=== PATIENT | male | born 1995 | race Caucasian/White ===

== ENCOUNTER 2018-02-13 15:56 | Emergency (ER) | payer OTHER ==
[~2018-02-13] VITALS: Ht 180.3 cm; Wt 89.0 kg
[~2018-02-13 15:56] MED LIST: NOHOMEMEDICATIONS; PYRIDIUM200 MG PO
[2018-02-13 16:31] LABS: ABSOLUTE BASOPHILS 0.1 thou/uL (0.0-0.2); ABSOLUTE EOSINOPHILS 0.1 thou/uL (0.0-0.7); ABSOLUTE LYMPHOCYTES 2.6 thou/uL (0.8-5.3); ABSOLUTE MONOCYTES 0.5 thou/uL (0.0-1.2); ABSOLUTE NEUTROPHILS 4.8 thou/uL (1.6-8.1); BASOPHILS 0.8 %; EOSINOPHILS 1.5 %; HEMATOCRIT 44.9 % (42.0-52.0); HEMOGLOBIN 15.4 gm/dL (14.0-18.0); LYMPHOCYTES 32.1 %; MCH 30.2 pg (26.0-34.0); MCHC 34.3 g/dL (28.0-37.0); MONOCYTES 6.3 %; MPV 8.5 fl. (7.2-11.1); NUCLEATED RBCS 0 /100WBC; PLATELET COUNT* 230 thou/uL (150-400); POLYS 59.3 %; RBC 5.11 mil/uL (4.50-6.00); RDW-CV 13.4 % (10.5-14.5); WBC 8.1 thou/uL (4.0-11.0)
[2018-02-13 16:40] LABS: ANION GAP 7 mmol/L (7-16); BUN 16 mg/dL (7-18); CALCIUM 9.4 mg/dL (8.5-10.1); CHLORIDE 102 mmol/L (98-107); CO2 31 mmol/L (21-32); CREATININE 1.1 mg/dL (0.6-1.3); GLUCOSE 91 mg/dL (70-99); SODIUM 140 mmol/L (136-145)
[2018-02-13 16:49] LABS: ALBUMIN 4.3 g/dL (3.4-5.0); ALKALINE PHOSPHATASE 54 U/L (46-116); NT-PRO BRAIN NAT PEPTIDE 12 pg/mL (<300); SGOT 19 U/L (15-37); SGPT 33 U/L (30-65); TOTAL BILIRUBIN 0.3 mg/dL (<0.1-1.0); TOTAL PROTEIN 7.8 g/dL (6.4-8.2); TROPONIN-I LEVEL <0.06 ng/mL (<0.06)
[2018-02-13 17:07] LABS: URINE BILIRUBIN NEGATIVE (Negative); URINE BLOOD NEGATIVE (Negative); URINE CLARITY CLEAR; URINE COLOR YELLOW; URINE GLUCOSE-RANDOM NEGATIVE (Negative); URINE KETONES NEGATIVE (Negative); URINE LEUKOCYTES NEGATIVE (Negative); URINE NITRITE NEGATIVE (Negative); URINE PROTEIN NEGATIVE (Negative); URINE UROBILINOGEN 0.2 E.U./dl (0.2-1.0)
[2018-02-13 17:24] LABS: AMP/METHAMP Negative (Negative); BARBITURATES Negative (Negative); BENZODIAZEPINES Negative (Negative); COCAINE Negative (Negative); METHADONE Negative (Negative); OPIATES Negative (Negative); PCP Negative (Negative); THC Negative (Negative)
[2018-02-13] MEDS ORDERED: VENTOLIN HFA 1818 GM INH (17:40)
[2018-02-13] MEDS ORDERED: NABUMETONE 750750 M1 PO (17:40)
[2018-02-13 17:58] VITALS: BP 123/68
--- NOTE | 2018-02-14 10:03 | EKG ---
[place] [address] ELECTROCARDIOGRAM REPORT Name: JASONMICHAELSÁNCHEZ Elliott [facility] [id number] Admission: 02/13/18 Attend Phys: Discharge: 02/13/18 Date of : [birth year] Report #: [id number] THIS REPORT FOR: //name// [facility] ED Test Date: 2018-02-13 Test Time: 16:02:16 Pat Name: SÁNCHEZ GOMEZ Department: Room: Gender: M Guest Laundry Attendant: KODI : 1995 Requested By: Senia Martin Order Number: [id number] MD: Lupillo Guadalupe Measurements Intervals [place] Rate: 62 P: 58 [place]: 158 QRS: 77 QRSD: 101 T: 41 QT: 387 QTc: 393 Interpretive Statements Sinus rhythm No previous ECG available for comparison Electronically Signed On 02-14-2018 10:03:17 CDT by Lupillo Guadalupe [email or web address] <ELECTRONICALLY SIGNED> By: Lupillo Guadalupe MD, [facility] 02/14/18 1003 1602 1602 Lupillo Guadalupe MD, FACC /EPI
== END 2018-02-13 17:59 | disposition home or self-care (01) ==
LOC: M.ERS 15:56
PROVIDERS: Nurse Practitioner Family
DX: R06.09 Other forms of dyspnea (principal); R07.89 Other chest pain; Z77.22 Contact with and (suspected) exposure to environmental tobacco smoke (acute) (chronic)

== ENCOUNTER 2019-08-27 07:36 | Emergency (ER) | payer OTHER ==
[~2019-08-27] VITALS: Ht 180.3 cm; Wt 79.4 kg
[~2019-08-27 07:36] MED LIST changes: +NABUMETONE 750750 M1 PO; +VENTOLIN HFA 1818 GM INH
[2019-08-27] MEDS ORDERED: PREDNISONE 5 MG5 M1 PO (07:48)
[2019-08-27] MEDS ORDERED: AUGMENTIN 875-1 EACH PO (07:48)
[2019-08-27 08:24] LABS: HEMATOCRIT 41.3 % (42.0-52.0); HEMOGLOBIN 14.4 gm/dL (14.0-18.0); MCH 29.9 pg (26.0-34.0); MCV 85.5 fL (80.0-100.0); MPV 7.7 fl. (7.2-11.1); NUCLEATED RBCS 0 /100WBC; PLATELET COUNT* 223 thou/uL (150-400); RBC 4.83 mil/uL (4.50-6.00); RDW-CV 13.5 % (10.5-14.5); WBC 15.7 thou/uL (4.0-11.0)
[2019-08-27 08:44] LABS: ABSOLUTE EOSINOPHILS 0.3 thou/uL (0.0-0.7); ABSOLUTE MONOCYTES 0.9 thou/uL (0.0-1.2); ABSOLUTE NEUTROPHILS 4.4 thou/uL (1.6-8.1); PLATELET ESTIMATE ADEQUATE
[2019-08-27] MEDS ORDERED: KEFLEX500 M2 PO (08:47)
[2019-08-27 09:08] VITALS: BP 131/78
== END 2019-08-27 09:09 | disposition home or self-care (01) ==
LOC: M.ERS 07:36
PROVIDERS: Emergency Medicine
DX: B27.90 Infectious mononucleosis, unspecified without complication (principal); D72.829 Elevated white blood cell count, unspecified; Z77.22 Contact with and (suspected) exposure to environmental tobacco smoke (acute) (chronic)

== ENCOUNTER 2020-02-02 22:00 | Emergency (ER) | payer OTHER ==
[~2020-02-02] VITALS: Ht 180.3 cm; Wt 83.9 kg
[~2020-02-02 22:00] MED LIST changes: +AUGMENTIN 875-1 EACH PO; +KEFLEX500 M2 PO; +PREDNISONE 5 MG5 M1 PO
[2020-02-02 22:30] LABS: ABSOLUTE EOSINOPHILS 0.1 thou/uL (0.0-0.7); ABSOLUTE LYMPHOCYTES 3.9 thou/uL (0.8-5.3); ABSOLUTE MONOCYTES 0.8 thou/uL (0.0-1.2); ABSOLUTE NEUTROPHILS 4.1 thou/uL (1.6-8.1); BASOPHILS 0.5 %; EOSINOPHILS 0.9 %; HEMATOCRIT 43.6 % (42.0-52.0); HEMOGLOBIN 15.3 gm/dL (14.0-18.0); LYMPHOCYTES 43.9 %; MCH 30.5 pg (26.0-34.0); MCHC 35.1 g/dL (28.0-37.0); MCV 86.7 fL (80.0-100.0); MONOCYTES 8.8 %; MPV 8.3 fl. (7.2-11.1); NUCLEATED RBCS 0 /100WBC; PLATELET COUNT* 210 thou/uL (150-400); POLYS 45.9 %; RBC 5.02 mil/uL (4.50-6.00); RDW-CV 13.8 % (10.5-14.5); WBC 8.9 thou/uL (4.0-11.0)
[2020-02-02 22:53] LABS: CALCIUM 9.1 mg/dL (8.5-10.1); CREATININE 1.3 mg/dL (0.6-1.3); POTASSIUM 3.2 mmol/L (3.5-5.1)
[2020-02-02 22:57] LABS: ALBUMIN 4.6 g/dL (3.4-5.0); TOTAL BILIRUBIN 0.5 mg/dL (<0.1-1.0); TOTAL PROTEIN 8.3 g/dL (6.4-8.2)
[2020-02-02 23:00] LABS: URINE BILIRUBIN NEGATIVE (Negative); URINE BLOOD NEGATIVE (Negative); URINE CLARITY CLEAR; URINE COLOR YELLOW; URINE GLUCOSE-RANDOM NEGATIVE (Negative); URINE KETONES NEGATIVE (Negative); URINE LEUKOCYTES-REFLEX NEGATIVE (Negative); URINE NITRITE-REFLEX NEGATIVE (Negative); URINE PROTEIN NEGATIVE (Negative); URINE UROBILINOGEN 0.2 E.U./dl (0.2-1.0)
[2020-02-03] MEDS ORDERED: IBUPROFEN 800800 MG PO (00:29)
[2020-02-03] MEDS ORDERED: CYCLOBENZAPRINE5 MG PO (00:29)
[2020-02-03 00:32] VITALS: BP 122/62
== END 2020-02-03 00:32 | disposition home or self-care (01) ==
LOC: M.ERS 22:00
PROVIDERS: Personal Emergency Response Attendant
DX: R10.31 Right lower quadrant pain (principal); M54.5 Low back pain